=== PATIENT | female | born 2000 | race Caucasian/White ===

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

== ENCOUNTER 2022-03-04 19:38 | Emergency (ER) | payer OTHER ==
[2022-03-04 19:47] VITALS: BP 110/63; PULSE 95; RESP 18; TEMP 98.4; BMI 29.5
[2022-03-04] MEDS ORDERED: ACETAMINOPHEN 325 MG TABLET (FP) PO ONE (21:01)
[2022-03-04] MEDS ORDERED: ACETAMINOPHEN 325 MG TABLET (FP) ONE (21:04)
== END 2022-03-04 21:24 | disposition home or self-care (01) ==
LOC: FER 19:38
DX: H60.502 Unspecified acute noninfective otitis externa, left ear (principal)
CPT/HCPCS: 99283-25

== ENCOUNTER 2022-05-16 06:15 | Inpatient (IN) | payer OTHER ==
[2022-05-16 08:31] LABS: BASO % 0.2 % (0-2.0); EOS % 0.7 % (0-4.5); HEMATOCRIT 35.3 % (32.4-45.2); LYMPH % 17.1 % (8-40); MCH 23.6 pg (25.7-33.7); MCHC 31.2 g/dl (32.0-36.0); MEAN CELL VOLUME 75.8 fl (80-96); MEAN PLT VOLUME 10.1 fl (7.5-11.1); MONO % 7.3 % (3.8-10.2); NEUT % 74.7 % (42.8-82.8); PLATELET COUNT 143 10^3/uL (134-434); RBC 4.66 M/mm3 (3.60-5.2); RDW 17.7 % (11.6-15.6); WHITE BLOOD COUNT 7.8 K/mm3 (4.0-10.0)
[2022-05-16 08:39] LABS: INR 0.97 (0.83-1.09); PROTHROMBIN TIME (PATIENT) 11.2 SEC (9.7-13.0)
[2022-05-16 08:41] LABS: ACTIVATED PTT 30.1 SECONDS (25.2-36.5)
[2022-05-16 08:50] LABS: CALCIUM 8.8 mg/dL (8.5-10.1)
[2022-05-16 08:51] LABS: BLOOD UREA NITROGEN 4.1 mg/dL (7-18)
[2022-05-16 08:55] LABS: CREATININE 0.6 mg/dL (0.55-1.3)
[2022-05-16] MEDS ORDERED: OXYTOCIN 30 UNITS in 0.9% NS 30 UNIT/500 ML INFUS.BAG IVPB SCH (10:00)
[2022-05-16] MEDS: ELECTROLYTE-148 SOLN 1,000 ML IV SCH ×2 (10:10→16:55)
[2022-05-16 10:14] VITALS: BMI 31.6
[2022-05-16 10:53] LABS: EPI CELLS >36 /uL (0-25.1); HYALINE CASTS 1 /uL (0-3.1); URINE APPEARANCE CLEAR; URINE BILIRUBIN NEGATIVE (NEGATIVE); URINE COLOR YELLOW; URINE GLUCOSE (UA) NEGATIVE (NEGATIVE); URINE KETONE 2+ (NEGATIVE); URINE LEUK ESTERASE 3+ (NEGATIVE); URINE NITRITE NEGATIVE (NEGATIVE); URINE PROTEIN NEGATIVE (NEGATIVE); URINE RBC 70 /uL (0-23.9); URINE WBC 173 /uL (0-25.8)
[2022-05-16 10:59] LABS: METHADONE, UR NEGATIVE (NEGATIVE); PHENCYCLIDINE,URINE NEGATIVE (NEGATIVE); URINE BARBITURATES NEGATIVE (NEGATIVE); URINE BENZODIAZEPINES NEGATIVE (NEGATIVE)
[2022-05-16 11:01] LABS: COCAINE, UR NEGATIVE (NEGATIVE); URINE AMPHETAMINES NEGATIVE (NEGATIVE)
[2022-05-16 11:03] LABS: OPIATES, URI NEGATIVE (NEGATIVE)
[2022-05-16 11:10] LABS: URINE BACTERIA 85.9 /uL (0-1359)
[2022-05-16] MEDS ORDERED: OXYTOCIN 30 UNITS in 0.9% NS 30 UNIT/500 ML INFUS.BAG IVPB ONE (11:28)
[2022-05-16] MEDS ORDERED: BUTORPHANOL TARTRATE 1 MG/ML VIAL IVPB ONE (11:36)
[2022-05-16] MEDS ORDERED: PROMETHAZINE HCL 25 MG/1 ML VIAL IVPB ONE (11:36)
[2022-05-16] MEDS ORDERED: BUTORPHANOL TARTRATE 2 MG/ML VIAL ONE (14:15)
[2022-05-16] MEDS ORDERED: PROMETHAZINE HCL 25 MG/1 ML VIAL ONE (14:15)
[2022-05-16] MEDS ORDERED: FENTANYL/BUPIVACAINE/NS/PF - PCEA - 50 ML DISP.SYRIN EP ONE (20:02)
[2022-05-16] MEDS: FENTANYL/BUPIVACAINE/NS/PF - PCEA - 50 ML DISP.SYRIN EP SCH (20:20)
[2022-05-16] MEDS ORDERED: NALOXONE HCL 0.4 MG/ML VIAL IVPUSH PRN (22:26)
[2022-05-16] MEDS ORDERED: AMPICILLIN SODIUM 2 GM VIAL ONE (23:06)
[2022-05-16] MEDS ORDERED: AMPICILLIN - 2 GM in SODIUM CHLORIDE 100 ML IVPB ONE (23:11)
[2022-05-17] MEDS ORDERED: FENTANYL/BUPIVACAINE/NS/PF - PCEA - 50 ML DISP.SYRIN EP ONE ×3 (00:50→09:02)
[2022-05-17] MEDS: FENTANYL/BUPIVACAINE/NS/PF - PCEA - 50 ML DISP.SYRIN EP SCH ×3 (00:55→09:06)
[2022-05-17] MEDS: ELECTROLYTE-148 SOLN 1,000 ML IV SCH (01:15)
[2022-05-17] MEDS ORDERED: AMPICILLIN SODIUM 1 GM VIAL ONE ×2 (03:24→07:22)
[2022-05-17] MEDS: AMPICILLIN - 1 GM in SODIUM CHLORIDE 100 ML IVPB SCH ×4 (03:25→16:17)
[2022-05-17] MEDS ORDERED: DEXAMETHASONE SOD PHOSPHATE 4 MG/1 ML VIAL ONE (11:15)
[2022-05-17] MEDS ORDERED: ceFAZolin SODIUM 1 GM VIAL ONE (11:15)
[2022-05-17] MEDS ORDERED: KETOROLAC TROMETHAMINE 30 MG/1 ML VIAL ONE (11:15)
[2022-05-17] MEDS ORDERED: ONDANSETRON 4 MG/2 ML VIAL ONE (11:15)
[2022-05-17] MEDS ORDERED: FENTANYL CITRATE/PF 50 MCG/ML VIAL ONE (11:18)
[2022-05-17] MEDS ORDERED: OXYTOCIN 30 UNITS in 0.9% NS 30 UNIT/500 ML INFUS.BAG IVPB ONE (11:18)
[2022-05-17] MEDS ORDERED: CITRIC ACID/SODIUM CITRATE 30 ML UNIT-DOSE CUP PO ONE (11:23)
[2022-05-17] MEDS ORDERED: morphine SULFATE (PF) 1 MG/2 ML SYRINGE ONE (11:44)
[2022-05-17] MEDS ORDERED: ONDANSETRON 4 MG/2 ML VIAL IVPUSH PRN (12:07)
[2022-05-17] MEDS ORDERED: ACETAMINOPHEN 325 MG TABLET (FP) PO PRN ×2 (12:07→12:24)
[2022-05-17] MEDS ORDERED: IBUPROFEN 600 MG TABLET (FP) PO PRN (12:24)
[2022-05-17] MEDS ORDERED: IBUPROFEN 800 MG/8 ML IJ IVPB PRN (12:24)
[2022-05-17] MEDS ORDERED: METHYLERGONOVINE MALEATE 0.2 MG/1 ML AMP IM PRN (12:24)
[2022-05-17] MEDS: OXYTOCIN 20 UNITS in 0.9% NS 20 UNIT/1,000 ML INFUS.BAG IV SCH ×2 (13:05→19:59)
[2022-05-17] MEDS ORDERED: OXYTOCIN 20 UNITS in 0.9% NS 20 UNIT/1,000 ML INFUS.BAG IV ONE (13:06)
[2022-05-17] MEDS: FERROUS SO4 325 MG TABLET (FP) PO SCH (21:49)
[2022-05-18] MEDS ORDERED: oxyCODONE HCL 5 MG TABLET PO PRN (00:24)
[2022-05-18 08:55] LABS: BASO % 0.1 % (0-2.0); EOS % 0.3 % (0-4.5); HEMATOCRIT 29.9 % (32.4-45.2); HEMOGLOBIN 9.5 GM/dL (10.7-15.3); MCH 24.1 pg (25.7-33.7); MCHC 31.8 g/dl (32.0-36.0); MEAN PLT VOLUME 10.1 fl (7.5-11.1); MONO % 7.8 % (3.8-10.2); NEUT % 76.8 % (42.8-82.8); PLATELET COUNT 129 10^3/uL (134-434); RBC 3.93 M/mm3 (3.60-5.2); RDW 19.6 % (11.6-15.6); WHITE BLOOD COUNT 10.5 K/mm3 (4.0-10.0)
[2022-05-18] MEDS: FERROUS SO4 325 MG TABLET (FP) PO SCH ×2 (09:19→22:09)
[2022-05-18] MEDS: PRENATAL VITAMINS W/ FOLIC ACID TABLET (FP) PO SCH (09:19)
[2022-05-18 11:28] LABS: POC NITRAZINE POS
[2022-05-18 11:28] LABS: POC NITRAZINE POS
[2022-05-18] MEDS ORDERED: BISACODYL 10 MG SUPP.RECT RC PRN (12:24)
[2022-05-18] MEDS: IBUPROFEN 600 MG TABLET (FP) PO PRN ×2 (12:32→18:08)
[2022-05-18] MEDS: SIMETHICONE 80 MG TAB.CHEW (FP) PO PRN ×3 (12:33→22:09)
[2022-05-18] MEDS: OXYTOCIN 20 UNITS in 0.9% NS 20 UNIT/1,000 ML INFUS.BAG IV SCH (19:41)
[2022-05-18] MEDS: ELECTROLYTE-148 SOLN 1,000 ML IV SCH (19:41)
[2022-05-19] MEDS: IBUPROFEN 600 MG TABLET (FP) PO PRN ×3 (01:40→19:55)
[2022-05-19] MEDS: FERROUS SO4 325 MG TABLET (FP) PO SCH ×2 (10:04→21:06)
[2022-05-19] MEDS: PRENATAL VITAMINS W/ FOLIC ACID TABLET (FP) PO SCH (10:04)
[2022-05-20 09:03] LABS: BASO % 0.2 % (0-2.0); EOS % 2.2 % (0-4.5); HEMATOCRIT 29.4 % (32.4-45.2); HEMOGLOBIN 9.4 GM/dL (10.7-15.3); LYMPH % 24.7 % (8-40); MCH 24.1 pg (25.7-33.7); MEAN CELL VOLUME 75.4 fl (80-96); MONO % 6.4 % (3.8-10.2); NEUT % 66.5 % (42.8-82.8); PLATELET COUNT 149 10^3/uL (134-434); RDW 19.5 % (11.6-15.6)
[2022-05-20] MEDS: FERROUS SO4 325 MG TABLET (FP) PO SCH (10:19)
[2022-05-20] MEDS: PRENATAL VITAMINS W/ FOLIC ACID TABLET (FP) PO SCH (10:19)
[2022-05-20 11:05] VITALS: BP 134/73; PULSE 72; RESP 18; TEMP 98.3
== END 2022-05-20 12:15 | disposition home or self-care (01) | DRG 540 ==
LOC: JDEL 06:15 → JLDR 09:30 → J3W 05-17 14:30
PROVIDERS: ADMIT Obstetrics & Gynecology; ATTEND Obstetrics & Gynecology
PROC: 10D00Z1 Extraction of Products of Conception, Low, Open Approach (ICD-10-PCS; principal; 2022-05-17)
DX: O42.12 Full-term premature rupture of membranes, onset of labor more than 24 hours following rupture (principal); O63.0 Prolonged first stage (of labor); Z3A.40 40 weeks gestation of pregnancy; Z37.0 Single live birth; O99.214 Obesity complicating childbirth; E66.9 Obesity, unspecified
CPT/HCPCS: 36415; 59025; 80048; 80307; 81003; 83986-QW; 85025; 85610; 85730; 86780; 86850; 86900; 86901; 88307-TC; C9803-CS; U0003; U0005

== ENCOUNTER 2023-09-01 09:03 | Emergency (ER) | payer OTHER ==
[2023-09-01 09:15] VITALS: RESP 16; BMI 26.9
[2023-09-01 09:56] LABS: URINE APPEARANCE CLEAR; URINE BILIRUBIN NEGATIVE (NEGATIVE); URINE COLOR YELLOW; URINE GLUCOSE (UA) NEGATIVE (NEGATIVE); URINE KETONE NEGATIVE (NEGATIVE); URINE LEUK ESTERASE NEGATIVE (NEGATIVE); URINE NITRITE NEGATIVE (NEGATIVE); URINE PROTEIN NEGATIVE (NEGATIVE)
[2023-09-01 11:39] LABS: BASO % 0.3 % (0-2.0); EOS % 5.8 % (0-4.5); HEMATOCRIT 39.2 % (32.4-45.2); HEMOGLOBIN 12.7 GM/dL (10.7-15.3); LYMPH % 20.6 % (8-40); MCH 26.4 pg (25.7-33.7); MCHC 32.3 g/dl (32.0-36.0); MEAN CELL VOLUME 81.8 fl (80-96); MONO % 7.9 % (3.8-10.2); NEUT % 65.4 % (42.8-82.8); PLATELET COUNT 193 10^3/uL (134-434); RBC 4.79 M/mm3 (3.60-5.2); RDW 14.7 % (11.6-15.6); WHITE BLOOD COUNT 7.7 K/mm3 (4.0-10.0)
[2023-09-01] MEDS: ACETAMINOPHEN 1000 MG/100 ML BAG IVPB ONE (11:45)
[2023-09-01 11:50] LABS: POTASSIUM 5.1 mmol/L (3.5-5.1)
[2023-09-01 11:52] LABS: BLOOD UREA NITROGEN 6.3 mg/dL (7-18); CALCIUM 8.9 mg/dL (8.5-10.1)
[2023-09-01 11:55] LABS: CREATININE 0.7 mg/dL (0.55-1.3)
[2023-09-01 11:57] LABS: BILIRUBIN,TOTAL 0.9 mg/dL (0.2-1); TOT PROT 7.8 g/dl (6.4-8.2)
[2023-09-01] MEDS: ACETAMINOPHEN 325 MG TABLET (FP) PO ONE (12:12)
[2023-09-01 14:57] VITALS: BP 99/53; PULSE 63; TEMP 98.5
== END 2023-09-01 15:20 | disposition home or self-care (01) ==
LOC: JER 09:03
PROC: 3E030NZ Introduction of Analgesics, Hypnotics, Sedatives into Peripheral Vein, Open Approach (ICD-10-PCS; principal; 2023-09-01)
DX: R10.30 Lower abdominal pain, unspecified (principal)
CPT/HCPCS: 36415; 74177-TC; 80053; 81003; 84703; 85025; 87491; 87591; 87661; 99285-25; J0131; Q9967

== ENCOUNTER 2024-10-17 11:32 | Emergency (ER) | payer OTHER ==
[2024-10-17 11:48] VITALS: BP 115/74; PULSE 74; RESP 18; TEMP 99; BMI 37.0
[2024-10-17] MEDS ORDERED: ACETAMINOPHEN 325 MG TABLET (FP) ONE (12:29)
[2024-10-17] MEDS: ACETAMINOPHEN 325 MG TABLET (FP) PO ONE (12:31)
[2024-10-17] MEDS ORDERED: IBUPROFEN 600 MG TABLET (FP) PO ONE (13:47)
== END 2024-10-17 14:00 | disposition home or self-care (01) ==
LOC: JERFT 11:32 → JER 11:32 → JERFT 14:00
DX: M79.671 Pain in right foot (principal)
CPT/HCPCS: 73610-TC-RT-FY; 73630-TC-RT-FY; 93971-TC; 99284-25